=== PATIENT | male | born 1975 | race Caucasian/White ===

== ENCOUNTER → 2017-03-25 | Outpatient (CLI) | payer OTHER, BC ==
--- NOTE | 2017-03-25 15:33 | MR ---
EXAMINATION: MRI of the left knee HISTORY: Pain COMPARISON: None TECHNIQUE: Multiplanar and multisequence images obtained of the left knee without contrast. FINDINGS: The patellar and quadriceps tendons are intact. The ACL and the PCL are intact. The medial and lateral collateral ligament complexes are preserved. The medial and lateral menisci appear norm al. The articular surfaces are preserved. There is no abnormal bone marrow edema. No significant krystyna nt effusion or Medina's cyst. There is minimal stranding just deep to the distal tensor fascia. IMPRESSION: 1. No internal derangement of the knee. 2. Possible minimal iliotibial band syndrome.
== END ==
LOC: MW.MRI 10:17
DX: M25.562 Pain in left knee (principal)
CPT/HCPCS: 73721-26-LT; 73721-LT

== ENCOUNTER → 2017-04-04 | Outpatient (CLI) | payer OTHER, BC ==
--- NOTE | 2017-04-04 12:49 | CR ---
EXAMINATION: Left knee HISTORY: Pain COMPARISON: MRI dated 03/25/2017 TECHNIQUE: 4 views FINDINGS/IMPRESSION: There is no acute osseous abnormality, dislocation, or fracture identified. Bon e mineralization and joint spaces appear normal. No soft tissue swelling or joint effusion.
== END ==
LOC: MW.CHORTHO 07:56
PROVIDERS: ATTEND Physician Assistant
DX: M25.562 Pain in left knee (principal)
CPT/HCPCS: 73564-26-LT; 73564-LT